=== PATIENT | female | born 1995 | race Caucasian/White ===

== ENCOUNTER 2016-08-14 11:34 | Emergency (ER) | payer MEDICAID ==
[2016-08-14 11:53] VITALS: BP 135/92
[2016-08-14] MEDS ORDERED: Lactated Ringers 1,000 ML IV SCH (12:00)
[2016-08-14 12:31] LABS: CHLORIDE,CL 105 mEq/L (98-106); SODIUM,NA 141 mEq/L (136-145)
--- NOTE | 2016-08-14 13:27 | EDM.PDOC ---
ED HPI NEURO - General Chief Complaint: Neurological Problem Stated Complaint: lethargic/seizure Time Seen by Provider: 08/14/16 11:50 Source of Information: Reports: Patient, Family History Limitations: Reports: Other (lethargic) - History of Present Illness INITIAL COMMENTS - FREE TEXT/NARRATIVE: Patient presents to ER with coworkers from [employer] after having a "near syncopal episode versus a seizure". Patient was actually coming out of the bathroom and looked very pale and staff was worried she was going to faint. Caught her before hitting the ground. She had been feeling this am like she was going to have a seizure so she took an Ativan this am. Staff did note any seizure activity. She does have a history of seizure disorder and usually is able to tell when one is coming so she takes an Ativan to halt it. She is currently on Lamictal. Last had a seizure in February and had her levels taken at that time. Mother does not recall any changes of her dose after that. She was currently treated for a UTI and has a cold currently and mother relates that she has had seizures in the past when she has been ill so she wonders if the urine hasn't cleared. Patient right now states she feels tired. Timing/Duration: Reports: Minutes: Location (Neuro Complaint): Reports: generalized Quality (Neuro Complaint): Reports: weakness Severity: mild Improves with: Reports: Rest Associated Symptoms: Reports: seizure (questionable), weakness. Denies: confusion, headaches, shortness of breath, fever/chills, diaphoresis, loss of appetite, nausea/vomiting Treatments CONSTRUCTION SUPERINTENDENT: Reports: Other medication(s) Other Treatments CONSTRUCTION SUPERINTENDENT: Took Ativan this am and is currently taking her Lamictal as directed. 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 Denies: fever, chills, malaise, decreased appetite HEENT: Reports: No symptoms Respiratory: Denies: Shortness of Breath, Wheezing, Cough Cardiovascular: Reports: Lightheadedness, Syncope. Denies: Chest pain, Edema Endocrine: Reports: fatigue GI/Abdominal: Denies: Abdominal pain, Nausea, Vomiting : Reports: no symptoms Musculoskeletal: Reports: no symptoms Skin: Reports: no symptoms Neurological: Reports: Seizure, Syncope, Weakness Psychiatric: Reports: No symptoms ED EXAM, NEURO - Physical Exam Exam: See Below Exam Limited By: No limitations General Appearance: WD/WN, no apparent distress, lethargic Eye Exam: bilateral eye: EOMI Ears: normal external exam, normal TMs Nose: normal inspection, normal mucosa, no blood Throat/Mouth: Normal inspection, Normal oropharynx Head Exam: normocephalic Neck: normal inspection, supple, non-tender Respiratory/Chest: no respiratory distress, lungs clear, normal breath sounds Cardiovascular: regular rate, rhythm GI/Abdominal: normal bowel sounds, soft, non tender Neurological: other (Patient did require 2 to transfer on to cot. At present, appears more lethargic than postictal. She does answer all questions appropriately. No incontinence. Follows command. ) Course - Vital Signs Last Recorded V/S: Last Vital Signs Temp 97.4 F 08/14/16 11:36 Pulse 104 H 08/14/16 11:36 Resp 18 08/14/16 11:36 BP 135/92 H 08/14/16 11:36 Pulse Ox 96 08/14/16 11:36 - Orders/Labs/Meds Orders: Active Orders 24 hr Category Date Time Status Lactated Ringers [Ringers, Lactated] 1,000 ml Med 08/14/16 12:00 Active IV ASDIRECTED Medication Orders Lactated Ringer's (Ringers, Lactated) 1,000 mls @ 500 mls/hr IV ASDIRECTED SURAJ Last Admin: 08/14/16 12:06 Dose: 500 mls/hr Labs: Laboratory Tests 08/14/16 08/14/16 08/14/16 Range/Units 12:02 12:02 14:15 WBC 3.4 L (5.0-10.0) 10^3/uL RBC 4.49 (4.00-5.50) 10^6/uL Hgb 13.5 (12.0-16.0) g/dL Hct 40.2 (37.0-47.0) % MCV 89.5 (82.0-94.0) fL MCH 30.1 (27.0-32.0) pg MCHC 33.6 (33.0-38.0) g/dL RDW Coeff of Ayanna 12.0 (11.0-15.0) % Plt Count 183 (150-400) 10^3/uL Neut % (Auto) 54.3 (35-85) % Lymph % (Auto) 37.8 (10-55) % Wells % (Auto) 6.7 (0-16) % Eos % (Auto) 0.6 (0-5) % Baso % (Auto) 0.6 (0-3) % Neut # 1.87 (1.80-7.00) 10^3/uL Lymph # 1.30 (1.00-4.80) 10^3/uL Wells # 0.23 (0.00-0.80) 10^3/uL Eos # 0.02 (0.00-0.45) 10^3/uL Baso # 0.02 10^3/uL Sodium 141 (136-145) mEq/L Potassium 4.0 (3.5-5.0) mEq/L Chloride 105 (98-106) mEq/L Carbon Dioxide 26 (21-32) mmol/L BUN 13 D (7-18) mg/dL Creatinine 0.9 (0.6-1.0) mg/dL Est Cr Clr Drug Dosing TNP Estimated GFR (MDRD) > 60 (>=60) mL/min Glucose 94 (75-99) mg/dL Calcium 9.1 (8.4-10.1) mg/dL Total Bilirubin 0.4 (0.0-1.0) mg/dL AST 10 L (15-37) U/L ALT 18 (12-78) U/L Alkaline Phosphatase 80 (46-116) U/L Creatine Kinase 66 (21-215) U/L Total Protein 8.0 (6.4-8.2) g/dL Albumin 4.5 (3.4-5.0) g/dL TSH, Ultra Sensitive 2.30 (0.36-5.60) uIU/mL Urine Color Light yellow (YELLOW) Urine Appearance Clear (CLEAR) Urine pH 6.0 (4.5-8.0) Ur Specific [place] 1.013 (1.003-1.020) Urine Protein Negative (NEGATIVE) mg/dL Urine Glucose (UA) Negative (NEGATIVE) mg/dL Urine Ketones Negative (NEGATIVE) mg/dL Urine Occult Blood Trace-intact H (NEGATIVE) Urine Nitrite Negative (NEGATIVE) Urine Bilirubin Negative (NEGATIVE) Urine Urobilinogen 0.2 (0.2-1.0) EU/dL Ur Leukocyte Esterase Negative (NEGATIVE) Urine RBC 0-5 (0-5) /HPF Urine WBC Not seen (0-5) /HPF Ur Squamous Epith Cells Few H (NOT SEEN) /HPF Urine Bacteria Occasional H (NOT SEEN) /HPF Meds: Medications Generic Name Dose Route Start Last Admin Trade Name Freq PRN Reason Stop Dose Admin Lactated Ringer's 1,000 mls @ 500 mls/hr 08/14/16 12:00 08/14/16 12:06 Ringers, Lactated IV 500 mls/hr ASDIRECTED SURAJ Administration Discontinued Medications Generic Name Dose Route Start Last Admin Trade Name Freq PRN Reason Stop Dose Admin Ceftriaxone Sodium 1 gm 08/14/16 14:43 08/14/16 14:54 Rocephin IVPUSH 08/14/16 14:44 1 gm ONETIME ONE Administration - Re-Assessments/Exams Free Text/Narrative Re-Assessment/Exam: 08/14/16 1230- Labs all normal. Waiting on urine. Will infuse IV fluids over 2 hours and observe. 08/14/16 16:09 Has been sleeping much of afternoon. Did complete whole dinner tray. Will discharge home. Await Lamictal level. Start antibiotics for UTI. Departure - Departure Time of Disposition: 16:10 Disposition: Home, Self-Care 01 Condition: fair Clinical Impression: Syncope, Seizure disorder Forms: ED Department Discharge Additional Instructions: 1. Rest 2. Push fluids 3. Bactrim DS one twice a day for 7 days 4. Usual seizure meds as directed 5. Notify your neurologist of potential seizure 6. Follow up if any ongoing concerns. - My Orders Last 24 Hours: My Active Orders 08/14/16 12:00 Lactated Ringers [Ringers, Lactated] 1,000 ml IV ASDIRECTED - Assessment/Plan Last 24 Hours: My Active Orders 08/14/16 12:00 Lactated Ringers [Ringers, Lactated] 1,000 ml IV ASDIRECTED
[2016-08-14] MEDS ORDERED: cefTRIAXone 1 GM Vial IVPUSH ONE (14:43)
== END 2016-08-14 16:30 | disposition home or self-care (01) ==
LOC: CC.ED 11:34
DX: G40.909 Epilepsy, unspecified, not intractable, without status epilepticus (principal); N39.0 Urinary tract infection, site not specified; F41.9 Anxiety disorder, unspecified; Z88.0 Allergy status to penicillin; Z79.899 Other long term (current) drug therapy; Z90.49 Acquired absence of other specified parts of digestive tract
CPT/HCPCS: 36415; 80053; 81001; 82550; 84443; 85025; 96361; 96374; 99283; J0696; J7120

== ENCOUNTER 2016-09-23 21:08 | Emergency (ER) | payer MEDICAID ==
[2016-09-23] MEDS ORDERED: Sodium Chloride 0.9% 1,000 ML IV ONE (21:20)
[2016-09-23] MEDS ORDERED: LORazepam 2 MG/ML Syringe IVPUSH PRN (21:21)
--- NOTE | 2016-09-23 21:40 | EDM.PDOC ---
ED HPI SEIZURE COMPLAINT - General Chief Complaint: Neurological Problem Stated Complaint: seizure Time Seen by Provider: 09/23/16 21:13 Source of Information: Reports: Patient, Family History Limitations: Reports: Altered mental status - History of Present Illness INITIAL COMMENTS - FREE TEXT/NARRATIVE: Found down at home by jannet longoria lying beside a desk. patient has a long history of seizures with the most recent being about 1 month ago. patient takes lamictal for her seizures. Symptom Onset Date: 09/23/16 Timing/Duration: Reports: minutes: Event Occurred (Where): home Event (Witnessed/Unwitnessed): unwitnessed Quality: Reports: unconscious Severity: moderate Event Symptoms: Reports: confusion, weakness Post Event Symptoms: Reports: confused, altered speech, postictal duration: - Related Data Allergies/ADRs: Allergies Allergy/AdvReac Type Severity Reaction Status Date / Time Penicillins Allergy Cannot Verified 09/23/16 21:12 Remember Home Meds: Home Meds LORazepam 1 mg PO DAILY PRN 10/17/15 [History] lamoTRIgine [Lamictal] 250 mg PO 199910/17/15 [History] Meloxicam [Mobic] 7.5 mg PO ASDIRECTED PRN 03/06/16 [History] lamoTRIgine [Lamictal] 225 mg PO DAILY 03/06/16 [History] Past Medical History HEENT History: Reports: Impaired vision 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 Neurological History: Reports: Seizure Psychiatric History: Reports: Anxiety - Past Surgical History GI Surgical History: Reports: Cholecystectomy Social & Family History - Tobacco Use Smoking Status *Q: Never Smoker - Caffeine Use Caffeine Use: Reports: Soda - Recreational Drug Use Recreational Drug Use: No ED ROS GENERAL - Review of Systems Review Of Systems: See Below Constitutional: Reports: no symptoms HEENT: Reports: No symptoms Respiratory: Reports: No Symptoms Cardiovascular: Reports: No symptoms Endocrine: Reports: no symptoms GI/Abdominal: Reports: No symptoms Musculoskeletal: Reports: no symptoms Skin: Reports: no symptoms Neurological: Reports: Confusion, Seizure, Weakness, Change in Speech Psychiatric: Reports: Anxiety Hematologic/Lymphatic: Reports: no symptoms Immunologic: Reports: no symptoms - Physical Exam Exam: See Below Exam Limited By: Altered mental status General Appearance: anxious, thin Ears: normal external exam Nose: normal inspection Throat/Mouth: Normal inspection Head Exam: atraumatic Respiratory/Chest: no respiratory distress, lungs clear Cardiovascular: normal peripheral pulses Neuro Exam (Abbreviated): confused, disoriented Back Exam: normal inspection Extremities: normal inspection, normal range of motion Psychiatric: anxious Skin Exam: Warm, Dry Course - Vital Signs Last Recorded V/S: Last Vital Signs Temp 98.9 F 09/23/16 21:10 Pulse 110 H 09/23/16 21:24 Resp 20 09/23/16 21:24 BP 137/87 09/23/16 21:24 Pulse Ox 96 09/23/16 21:24 - Orders/Labs/Meds Orders: Active Orders 24 hr Category Date Time Status LORazepam [Ativan] Med 09/23/16 21:21 Ordered 1 mg IVPUSH ASDIRECTED PRN Sodium Chloride 0.9% [Normal Saline] 1,000 ml Med 09/23/16 21:20 Ordered IV .BOLUS Medication Orders Sodium Chloride (Normal Saline) 1,000 mls @ 100 mls/hr IV .BOLUS ONE Stop: 09/24/16 07:19 Lorazepam (Ativan) 1 mg IVPUSH ASDIRECTED PRN PRN Reason: seizure activity Meds: Medications Generic Name Dose Route Start Last Admin Trade Name Freq PRN Reason Stop Dose Admin Sodium Chloride 1,000 mls @ 100 mls/hr 09/23/16 21:20 Normal Saline IV 09/24/16 07:19 .BOLUS ONE Lorazepam 1 mg 09/23/16 21:21 Ativan IVPUSH ASDIRECTED PRN seizure activity Departure - Departure Time of Disposition: 22:03 Disposition: Home, Self-Care 01 Condition: good Clinical Impression: Seizure, Seizure disorder Instructions: Epilepsy, [id number] Forms: ED Department Discharge Additional Instructions: Follow up with your neurologist tomorrow for any further. - My Orders Last 24 Hours: My Active Orders 09/23/16 21:20 Sodium Chloride 0.9% [Normal Saline] 1,000 ml IV .BOLUS 09/23/16 21:21 LORazepam [Ativan] 1 mg IVPUSH ASDIRECTED PRN - Assessment/Plan Last 24 Hours: My Active Orders 09/23/16 21:20 Sodium Chloride 0.9% [Normal Saline] 1,000 ml IV .BOLUS 09/23/16 21:21 LORazepam [Ativan] 1 mg IVPUSH ASDIRECTED PRN
[2016-09-23] MEDS ORDERED: Ondansetron 4 MG/2 ML SDV IVPUSH ONE (21:56)
[2016-09-23 22:03] VITALS: BP 114/79
== END 2016-09-23 22:22 | disposition home or self-care (01) ==
LOC: CC.ED 21:08 → SUPCPDRO 21:08 → CC.ED 22:22
DX: G40.909 Epilepsy, unspecified, not intractable, without status epilepticus (principal); Z90.49 Acquired absence of other specified parts of digestive tract; Z79.899 Other long term (current) drug therapy; Z88.0 Allergy status to penicillin
CPT/HCPCS: 96361; 96374; 96375; 99283; J2060; J2405; J7030

== ENCOUNTER 2016-12-18 12:32 | Emergency (ER) | payer MEDICAID, OTHER ==
[2016-12-18 12:38] VITALS: BP 125/89
--- NOTE | 2016-12-18 13:05 | EDM.PDOC ---
ED HPI GENERAL MEDICAL PROBLEM - General Chief Complaint: Neurological Problem Stated Complaint: POSSIBLE SEIZURE Time Seen by Provider: 12/18/16 12:47 Source of Information: Reports: Patient, Significant Other History Limitations: Reports: No Limitations - History of Present Illness INITIAL COMMENTS - FREE TEXT/NARRATIVE: Patient presents to ER after an unwitnessed syncopal episode. Boyfriend states that he came home at lunch and she was lying on the floor. Was able to assist her to the chair and she "passed out for a few seconds again". Patient was then taken to the couch and he states she "seemed daze" but not like when she has her seizures. Patient states she was not feeling well at work this am, felt dizzy at times. Did sit down to rest and felt better for a short time. Did finish out the am at work and thought she was better. Went home and doesn' t really recall what happened after that. Does admit that she had a muffin today but hasn't had much to drink other than from the water faucet. Does have a seizure history but does not feel like this is it. She did take Ativan "just in case". Has been taking Lamictal as directed. Onset: Sudden Duration: Hour(s): Location: Reports: Head Severity: Mild Improves with: Reports: Rest Associated Symptoms: Reports: Confusion, Weakness. 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(s) Other Treatments CNC SET UP OPERATOR: Ativan prior to admission Left Middle Thoracic Pain Score (Numeric/FACES): 4 - Related Data Allergies Allergy/AdvReac Type Severity Reaction Status Date / Time Penicillins Allergy Cannot Verified 09/23/16 21:12 Remember Home Meds: Home Meds LORazepam 1 mg PO DAILY PRN 10/17/15 [History] lamoTRIgine [Lamictal] 250 mg PO 199910/17/15 [History] Meloxicam [Mobic] 7.5 mg PO ASDIRECTED PRN 03/06/16 [History] lamoTRIgine [Lamictal] 225 mg PO DAILY 03/06/16 [History] Cholecalciferol (Vitamin D3) [Vitamin D] 5,000 unit PO DAILY 09/23/16 [History] Magnesium 500 mg PO DAILY 09/23/16 [History] Sulfamethoxazole/Trimethoprim [Bactrim Ds Tablet] 1 each PO BID #14 tablet 12/18 [Rx] Past Medical History HEENT History: Reports: Impaired 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 Denies: Fever, Chills HEENT: Denies: Ear Pain, Rhinitis, Throat Pain Respiratory: Denies: Shortness of Breath, Wheezing, Cough Cardiovascular: Denies: Chest Pain, Edema, Lightheadedness Endocrine: Reports: Fatigue GI/Abdominal: Denies: Abdominal Pain, Constipation, Diarrhea, Nausea, Vomiting : Reports: No Symptoms Musculoskeletal: Reports: No Symptoms Skin: Reports: No Symptoms ED EXAM, NEURO - Physical Exam Exam: See Below Exam Limited By: No Limitations General Appearance: Alert, WD/WN, No Apparent Distress Ears: Normal External Exam, Normal TMs Nose: Normal Inspection, Normal Mucosa, No Blood Throat/Mouth: Normal Inspection, Normal Oropharynx Head Exam: Normocephalic Neck: Normal Inspection, Supple, Non-Tender Respiratory/Chest: No Respiratory Distress, Lungs Clear, Normal Breath Sounds (. ) Cardiovascular: Regular Rate, Rhythm GI/Abdominal: Normal Bowel Sounds, Soft, Non-Tender Neurological: Alert, Normal Mood/Affect Extremities: Normal Inspection, Normal Capillary Refill Skin Exam: Warm, Dry Course - Vital Signs Last Recorded V/S: Last Vital Signs Temp 97.1 F 12/18/16 12:35 Pulse 80 12/18/16 12:35 Resp 20 12/18/16 12:35 BP 125/89 12/18/16 12:35 Pulse Ox 99 12/18/16 12:35 - Orders/Labs/Meds Orders: Active Orders 24 hr Category Date Time Status Head wo Cont [CT] Stat Exams 12/18/16 13:04 Taken LAMOTRIGINE [REF] Stat Lab 12/18/16 13:30 Received UA W/MICROSCOPIC [URIN] Stat Lab 12/18/16 13:03 Uncollected Lactated Ringers [Ringers, Lactated] 1,000 ml Med 12/18/16 14:15 Active IV ASDIRECTED Medication Orders Lactated Ringer's (Ringers, Lactated) 1,000 mls @ 500 mls/hr IV ASDIRECTED SURAJ Last Admin: 12/18/16 14:14 Dose: 500 mls/hr Labs: Laboratory Tests 12/18/16 12/18/16 Range/Units 13:03 13:04 WBC 4.1 L (5.0-10.0) 10^3/uL RBC 4.35 (4.00-5.50) 10^6/uL Hgb 13.5 (12.0-16.0) g/dL Hct 40.3 (37.0-47.0) % MCV 92.6 (82.0-94.0) fL MCH 31.0 (27.0-32.0) pg MCHC 33.5 (33.0-38.0) g/dL RDW Coeff of Ayanna 11.7 (11.0-15.0) % Plt Count 187 (150-400) 10^3/uL Neut % (Auto) 48.1 (35-85) % Lymph % (Auto) 43.6 (10-55) % [place]edar % (Auto) 7.1 (0-16) % Eos % (Auto) 0.7 (0-5) % Baso % (Auto) 0.5 (0-3) % Neut # (Auto) 1.96 (1.80-7.00) 10^3/uL Lymph # (Auto) 1.78 (1.00-4.80) 10^3/uL [place] # (Auto) 0.29 (0.00-0.80) 10^3/uL Eos # (Auto) 0.03 (0.00-0.45) 10^3/uL Baso # (Auto) 0.02 10^3/uL Sodium 141 (136-145) mEq/L Potassium 4.3 (3.5-5.0) mEq/L Chloride 103 (98-106) mEq/L Carbon Dioxide 27 (21-32) mmol/L BUN 12 (7-18) mg/dL Creatinine 0.9 (0.6-1.0) mg/dL Est Cr Clr Drug Dosing 94.78 mL/min Estimated GFR (MDRD) > 60 (>=60) mL/min Glucose 93 (75-99) mg/dL Calcium 9.3 (8.4-10.1) mg/dL Total Bilirubin 0.5 (0.0-1.0) mg/dL AST 14 L (15-37) U/L ALT 21 (12-78) U/L Alkaline Phosphatase 78 (46-116) U/L Creatine Kinase 66 (21-215) U/L C-Reactive Protein < 0.2 L (0.2-0.8) mg/dL Total Protein 8.0 (6.4-8.2) g/dL Albumin 4.5 (3.4-5.0) g/dL TSH, Ultra Sensitive 2.76 (0.36-5.60) uIU/mL Meds: Medications Generic Name Dose Route Start Last Admin Trade Name Freq PRN Reason Stop Dose Admin Lactated Ringer's 1,000 mls @ 500 mls/hr 12/18/16 14:15 12/18/16 14:14 Ringers, Lactated IV 500 mls/hr ASDIRECTED [facility] Administration - Re-Assessments/Exams Free Text/Narrative Re-Assessment/Exam: 12/18/16 16:08 Doing well. Feels better. Did eat dinner and is now voiding. Slept some. We did discussing notifying her neurologist if needed. Will await Lamictal level and see how she does over the next few days. Urine does show leucocytes and bacteria. Will treat accordingly. Departure - Departure Time of Disposition: 16:09 Disposition: Home, Self-Care 01 Condition: Good Clinical Impression: UTI (urinary tract infection) Qualifiers: Urinary tract infection type: acute cystitis Hematuria presence: without hematuria Qualified Code(s): N30.00 - Acute cystitis without hematuria Syncope Qualifiers: Encounter type: initial encounter - Discharge Information Forms: ED Department Discharge Additional Instructions: 1. Push fluids 2. Bactrim DS one twice a day for UTI for 7 days 3. Usual meds as directed 4. Follow up or notify us if continue to have ongoing dizziness or lightheadedness as neurology can then be notified. - My Orders Last 24 Hours: My Active Orders 12/18/16 13:03 UA W/MICROSCOPIC [URIN] Stat 12/18/16 13:04 Head wo Cont [CT] Stat 12/18/16 13:30 LAMOTRIGINE [REF] Stat 12/18/16 14:15 Lactated Ringers [Ringers, Lactated] 1,000 ml IV ASDIRECTED - Assessment/Plan Last 24 Hours: My Active Orders 12/18/16 13:03 UA W/MICROSCOPIC [URIN] Stat 12/18/16 13:04 Head wo Cont [CT] Stat 12/18/16 13:30 LAMOTRIGINE [REF] Stat 12/18/16 14:15 Lactated Ringers [Ringers, Lactated] 1,000 ml IV ASDIRECTED
[2016-12-18 13:41] LABS: CHLORIDE,CL 103 mEq/L (98-106); SODIUM,NA 141 mEq/L (136-145)
[2016-12-18] MEDS ORDERED: Lactated Ringers 1,000 ML IV SCH (14:15)
== END 2016-12-18 17:07 | disposition home or self-care (01) ==
LOC: CC.ED 12:32
DX: R55 Syncope and collapse (principal); N30.00 Acute cystitis without hematuria; R56.9 Unspecified convulsions; F41.9 Anxiety disorder, unspecified; Z90.49 Acquired absence of other specified parts of digestive tract; Z88.0 Allergy status to penicillin; Z79.1 Long term (current) use of non-steroidal anti-inflammatories (NSAID); Z79.899 Other long term (current) drug therapy; Z79.2 Long term (current) use of antibiotics
CPT/HCPCS: 36415; 70450; 80053; 80175; 81001; 82550; 84443; 85025; 86140; 96360; 96361; 99284; J7120

== ENCOUNTER 2017-02-11 12:23 | Emergency (ER) | payer MEDICAID ==
[2017-02-11] MEDS ORDERED: LORazepam 2 MG/ML Syringe IVPUSH ONE (12:26)
[2017-02-11] MEDS ORDERED: Sodium Chloride 0.9% 1,000 ML IV ONE (12:28)
[2017-02-11 12:36] VITALS: BP 122/75
[2017-02-11 12:56] LABS: CHLORIDE,CL 105 mEq/L (98-106); SODIUM,NA 140 mEq/L (136-145)
--- NOTE | 2017-02-11 13:01 | EDM.PDOC ---
ED HPI GENERAL MEDICAL PROBLEM - General Chief Complaint: Neuro Symptoms/Deficits Stated Complaint: seizures Time Seen by Provider: 02/11/17 12:26 Source of Information: Reports: Patient History Limitations: Reports: No Limitations - History of Present Illness INITIAL COMMENTS - FREE TEXT/NARRATIVE: This patient is a 21 year old female that presents to the ER. Patient reports that she has a history of Seizures and takes Lamictal, she did tae her medication today per patient. The patient reports that she still does get seizures frequently even after bring on her medications. The patient reports that she is able to tell when she is going to get a seizure. She reports that about 1 hour ago she started to feel like she is going to have a seizure. She reports that she developed a headache with lightheaded sensation. She reports this is the same exact symptoms she gets when she is getting ready to have a seizure. The patient reports that she has had some mild allergy congestion, but not been sick. She denies neck pain, neck stiffness, cp, soa, abd pain, urinary/ bowel changes, rashes, fever, nausea, vomiting, diarrhea. She is alert and oriented. She is in wheelchair and able to step over to stretcher without difficulty. No unilateral weaknesses. Stroke score is 0. No evidence of current seizure, denies seizure today, she is not post-ictal. She reports she just finished abx for UTI. Onset: Today Onset Date: 02/11/17 Onset Time: 11:45 Duration: Hour(s): (1) Severity: Moderate Improves with: Reports: None Worsens with: Reports: None Associated Symptoms: Reports: Headaches. Denies: Confusion, Chest Pain, Cough, cough w sputum, Diaphoresis, Fever/Chills, Loss of Appetite, Malaise, Nausea/ Vomiting, Rash, Seizure, Shortness of Breath, Syncope, Weakness Headache Pain Score (Numeric/FACES): 8 - Related Data Allergies Allergy/AdvReac Type Severity Reaction Status Date / Time oseltamivir [From Tamiflu] Allergy Seizure Verified 02/11/17 13:15 Penicillins Allergy Cannot Verified 02/11/17 13:15 Remember Home Meds: Home Meds LORazepam 1 mg PO DAILY PRN 10/17/15 [History] lamoTRIgine [Lamictal] 250 mg PO BID 10/17/15 [History] Cholecalciferol (Vitamin D3) [Vitamin D] 5,000 unit PO DAILY 09/23/16 [History] Magnesium 500 mg PO DAILY 09/23/16 [History] Vits #93/Iron Fum/FA [ Formula Tablet] 1 tab PO DAILY 02/11/17 [History] Past Medical History HEENT History: Reports: Impaired Vision [employer] History: Reports: Musculoskeletal History: Reports: Fracture Neurological History: Reports: Seizure Psychiatric History: Reports: Anxiety - Past Surgical History GI Surgical History: Reports: Cholecystectomy Social & Family History - Family History Family Medical History: Noncontributory - Tobacco Use Smoking Status *Q: Never Smoker - Caffeine Use Caffeine Use: Reports: None - Recreational Drug Use Recreational Drug Use: No ED ROS GENERAL - Review of Systems Review Of Systems: See Below Constitutional: Reports: No Symptoms HEENT: Reports: No Symptoms Respiratory: Reports: No Symptoms Cardiovascular: Reports: No Symptoms Endocrine: Reports: No Symptoms GI/Abdominal: Reports: No Symptoms : Reports: No Symptoms Musculoskeletal: Reports: No Symptoms Skin: Reports: No Symptoms Neurological: Reports: Dizziness, Headache. Denies: Confusion, Numbness, Paresthesia, Pre-Existing Deficit, Seizure, Syncope, Tingling, Tremors, Trouble Speaking, Difficulty Walking, Weakness, Change in Speech, Gait Disturbance Psychiatric: Reports: No Symptoms Hematologic/Lymphatic: Reports: No Symptoms Immunologic: Reports: No Symptoms - Physical Exam Exam: See Below Exam Limited By: No Limitations General Appearance: Alert, WD/WN, No Apparent Distress Eye Exam: Bilateral Eye: EOMI, PERRL Ears: Normal External Exam, Normal Canal, Hearing Grossly Normal, Normal TMs Nose: Normal Inspection, Normal Mucosa, No Blood Throat/Mouth: Normal Inspection, Normal Lips, Normal Teeth, Normal Gums, Normal Oropharynx, Normal Voice, No Airway Compromise Head Exam: Atraumatic, Normocephalic Neck: Normal Inspection, Supple, Non-Tender, Full Range of Motion Respiratory/Chest: No Respiratory Distress, Lungs Clear, Normal Breath Sounds, No Accessory Muscle Use Cardiovascular: Normal Peripheral Pulses, No Edema, No Gallop, No JVD, No Murmur , No Rub, Tachycardia (104 on exam) GI/Abdominal: Normal Bowel Sounds, Soft, Non-Tender, No Organomegaly, No Distention, No Abnormal Bruit, No Mass, Pelvis Stable Neuro Exam (Abbreviated): Alert, Oriented, CN II-XII Intact, Normal Cognition, Normal Gait, No Motor/Sensory Deficits Back Exam: Normal Inspection, Full Range of Motion. No: CVA Tenderness (L), CVA Tenderness (R) Extremities: Normal Inspection, Normal Range of Motion, Non-Tender, No Pedal Edema, Normal Capillary Refill Psychiatric: Normal Mood, Anxious Skin Exam: Warm, Dry, Intact, Normal Color, No Rash Course - Vital Signs Last Recorded V/S: Last Vital Signs Temp 97.5 F 02/11/17 12:31 Pulse 104 H 02/11/17 12:31 Resp 16 02/11/17 12:31 BP 122/75 02/11/17 12:31 Pulse Ox - Orders/Labs/Meds Labs: Laboratory Tests 02/11/17 02/11/17 02/11/17 Range/Units 12:26 12:26 13:47 WBC 3.1 L (5.0-10.0) 10^3/uL RBC 4.12 (4.00-5.50) 10^6/uL Hgb 12.6 (12.0-16.0) g/dL Hct 37.9 (37.0-47.0) % MCV 92.0 (82.0-94.0) fL MCH 30.6 (27.0-32.0) pg MCHC 33.2 (33.0-38.0) g/dL RDW Coeff of Ayanna 11.3 (11.0-15.0) % Plt Count 195 (150-400) 10^3/uL Neut % (Auto) 34.8 L (35-85) % Lymph % (Auto) 53.0 (10-55) % [place] % (Auto) 9.3 (0-16) % Eos % (Auto) 1.9 (0-5) % Baso % (Auto) 1.0 (0-3) % Neut # (Auto) 1.09 L (1.80-7.00) 10^3/uL Lymph # (Auto) 1.66 (1.00-4.80) 10^3/uL [place] # (Auto) 0.29 (0.00-0.80) 10^3/uL Eos # (Auto) 0.06 (0.00-0.45) 10^3/uL Baso # (Auto) 0.03 10^3/uL Sodium 140 (136-145) mEq/L Potassium 4.0 (3.5-5.0) mEq/L Chloride 105 (98-106) mEq/L Carbon Dioxide 23 (21-32) mmol/L BUN 9 (7-18) mg/dL Creatinine 0.9 (0.6-1.0) mg/dL Est Cr Clr Drug Dosing 95.35 mL/min Estimated GFR (MDRD) > 60 (>=60) mL/min Glucose 112 H (75-99) mg/dL Calcium 8.7 (8.4-10.1) mg/dL Total Bilirubin 0.4 (0.0-1.0) mg/dL AST 14 L (15-37) U/L ALT 19 (12-78) U/L Alkaline Phosphatase 82 (46-116) U/L Total Protein 7.4 (6.4-8.2) g/dL Albumin 4.3 (3.4-5.0) g/dL Urine Color (YELLOW) Urine Appearance (CLEAR) Urine pH (4.5-8.0) Ur Specific [place] (1.003-1.020) Urine Protein (NEGATIVE) mg/dL Urine Glucose (UA) (NEGATIVE) mg/dL Urine Ketones (NEGATIVE) mg/dL Urine Occult Blood (NEGATIVE) Urine Nitrite (NEGATIVE) Urine Bilirubin (NEGATIVE) Urine Urobilinogen (0.2-1.0) EU/dL Ur Leukocyte Esterase (NEGATIVE) Urine RBC (0-5) /HPF Urine WBC (0-5) /HPF Ur Squamous Epith Cells (NOT SEEN) /HPF Urine Bacteria (NOT SEEN) /HPF Urine Mucus (NOT SEEN) /HPF Urine HCG, Qual Urine Opiates Screen Negative (NEGATIVE) Ur Oxycodone Screen Negative (NEGATIVE) Urine Methadone Screen Negative (NEGATIVE) Ur Barbiturates Screen Negative (NEGATIVE) U Tricyclic Antidepress Negative (NEGATIVE) Ur Phencyclidine Scrn Negative (NEGATIVE) Ur Amphetamine Screen Negative (NEGATIVE) U Methamphetamines Scrn Negative (NEGATIVE) Urine MDMA Screen Negative (NEGATIVE) U Benzodiazepines Scrn Positive H (NEGATIVE) Urine Cocaine Screen Negative (NEGATIVE) U Marijuana (THC) Screen Negative (NEGATIVE) 02/11/17 02/11/17 Range/Units 13:52 13:52 WBC (5.0-10.0) 10^3/uL RBC (4.00-5.50) 10^6/uL Hgb (12.0-16.0) g/dL Hct (37.0-47.0) % MCV (82.0-94.0) fL MCH (27.0-32.0) pg MCHC (33.0-38.0) g/dL RDW Coeff of Ayanna (11.0-15.0) % Plt Count (150-400) 10^3/uL Neut % (Auto) (35-85) % Lymph % (Auto) (10-55) % [place] % (Auto) (0-16) % Eos % (Auto) (0-5) % Baso % (Auto) (0-3) % Neut # (Auto) (1.80-7.00) 10^3/uL Lymph # (Auto) (1.00-4.80) 10^3/uL [place] # (Auto) (0.00-0.80) 10^3/uL Eos # (Auto) (0.00-0.45) 10^3/uL Baso # (Auto) 10^3/uL Sodium (136-145) mEq/L Potassium (3.5-5.0) mEq/L Chloride (98-106) mEq/L Carbon Dioxide (21-32) mmol/L BUN (7-18) mg/dL Creatinine (0.6-1.0) mg/dL Est Cr Clr Drug Dosing mL/min Estimated GFR (MDRD) (>=60) mL/min Glucose (75-99) mg/dL Calcium (8.4-10.1) mg/dL Total Bilirubin (0.0-1.0) mg/dL AST (15-37) U/L ALT (12-78) U/L Alkaline Phosphatase (46-116) U/L Total Protein (6.4-8.2) g/dL Albumin (3.4-5.0) g/dL Urine Color Yellow (YELLOW) Urine Appearance Clear (CLEAR) Urine pH 6.0 (4.5-8.0) Ur Specific [place] >= 1.030 H (1.003-1.020) Urine Protein Trace H (NEGATIVE) mg/dL Urine Glucose (UA) Negative (NEGATIVE) mg/dL Urine Ketones Negative (NEGATIVE) mg/dL Urine Occult Blood Trace-lysed H (NEGATIVE) Urine Nitrite Negative (NEGATIVE) Urine Bilirubin Negative (NEGATIVE) Urine Urobilinogen 0.2 (0.2-1.0) EU/dL Ur Leukocyte Esterase Negative (NEGATIVE) Urine RBC Not seen (0-5) /HPF Urine WBC Not seen (0-5) /HPF Ur Squamous Epith Cells Many H (NOT SEEN) /HPF Urine Bacteria Few H (NOT SEEN) /HPF Urine Mucus Few H (NOT SEEN) /HPF Urine HCG, Qual Negative Urine Opiates Screen (NEGATIVE) Ur Oxycodone Screen (NEGATIVE) Urine Methadone Screen (NEGATIVE) Ur Barbiturates Screen (NEGATIVE) U Tricyclic Antidepress (NEGATIVE) Ur Phencyclidine Scrn (NEGATIVE) Ur Amphetamine Screen (NEGATIVE) U Methamphetamines Scrn (NEGATIVE) Urine MDMA Screen (NEGATIVE) U Benzodiazepines Scrn (NEGATIVE) Urine Cocaine Screen (NEGATIVE) U Marijuana (THC) Screen (NEGATIVE) Meds: Medications Discontinued Medications Generic Name Dose Route Start Last Admin Trade Name Freq PRN Reason Stop Dose Admin Sodium Chloride 1,000 mls @ 1,000 mls/hr 02/11/17 12:28 02/11/17 12:41 Normal Saline IV 02/11/17 13:27 1,000 mls/hr .BOLUS ONE Administration Lorazepam 1 mg 02/11/17 12:26 02/11/17 12:37 Ativan IVPUSH 02/11/17 12:27 1 mg ONETIME ONE Administration Departure - Departure Time of Disposition: 14:17 Disposition: Home, Self-Care 01 Condition: Good Clinical Impression: Seizure disorder, Dehydration - Discharge Information Instructions: Epilepsy, [id number], Rehydration, Adult Referrals: Gil Orozco MD [Primary Care Provider] - Forms: ED Department Discharge Additional Instructions: Followup with your primary care provider Return to the ER for worsening of condition or any emergent concerns Increase fluids Take seizure medications as prescribed - Assessment/Plan Plan: PLEASE SEE RN NOTE FOR PFSH.
== END 2017-02-11 14:40 | disposition home or self-care (01) ==
LOC: CC.ED 12:23
DX: G40.909 Epilepsy, unspecified, not intractable, without status epilepticus (principal); E86.0 Dehydration; F41.9 Anxiety disorder, unspecified; Z90.49 Acquired absence of other specified parts of digestive tract; Z88.0 Allergy status to penicillin; Z88.8 Allergy status to other drugs, medicaments and biological substances
CPT/HCPCS: 36415; 80053; 80305; 81001; 81025; 85025; 96361; 96374; 99284; J2060; J7030

== ENCOUNTER 2017-03-05 09:22 | Emergency (ER) | payer MEDICAID ==
[2017-03-05 09:27] VITALS: BP 135/77
--- NOTE | 2017-03-05 09:49 | EDM.PDOC ---
ED HPI GENERAL MEDICAL PROBLEM - General Chief Complaint: General Stated Complaint: feeling like im going to have a seizure Time Seen by Provider: 03/05/17 09:30 Source of Information: Reports: Patient History Limitations: Reports: No Limitations - History of Present Illness INITIAL COMMENTS - FREE TEXT/NARRATIVE: Patient presents to ER with weakness and a headache. 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 States felt weak so went and sat down in the break room. Believes she may have "passed out for a little while as everything went black". Does have a seizure disorder, unsure if she had one. She states she did take her Keppra this am, did not have any Ativan at work to take. Did have breakfast this am. Has been feeling well as of late. Now having issues with dizziness, nausea and headache. Onset: Today, Sudden Duration: Minutes: Location: Reports: Generalized Severity: Mild Worsens with: Reports: Movement Associated Symptoms: Reports: Nausea/Vomiting, Seizure, Syncope. Denies: Confusion, Chest Pain, Cough, Diaphoresis, Fever/Chills, Loss of Appetite, Shortness of Breath, Weakness Headache Pain Score (Numeric/FACES): 5 - Related Data Allergies Allergy/AdvReac Type Severity Reaction Status Date / Time oseltamivir [From Tamiflu] Allergy Seizure Verified 03/05/17 09:27 Penicillins Allergy Cannot Verified 03/05/17 09:27 Remember Home Meds: Home Meds LORazepam 1 mg PO DAILY PRN 10/17/15 [History] lamoTRIgine [Lamictal] 250 mg PO BID 10/17/15 [History] Cholecalciferol (Vitamin D3) [Vitamin D] 5,000 unit PO DAILY 09/23/16 [History] Magnesium 500 mg PO DAILY 09/23/16 [History] Vits #93/Iron Fum/FA [ Formula Tablet] 1 tab PO DAILY 02/11/17 [History] Past Medical History HEENT History: Reports: Impaired 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 Denies: Fever, Chills, Malaise, Decreased Appetite HEENT: Denies: Vision Change Respiratory: Denies: Shortness of Breath, Cough Cardiovascular: Reports: Lightheadedness. Denies: Chest Pain, Edema Endocrine: Reports: Fatigue GI/Abdominal: Reports: Nausea. Denies: Abdominal Pain, Vomiting : Reports: No Symptoms Musculoskeletal: Reports: No Symptoms Skin: Reports: No Symptoms Neurological: Reports: Dizziness, Headache, Syncope, Weakness Psychiatric: Reports: No Symptoms ED EXAM, NEURO - Physical Exam Exam: See Below Exam Limited By: No Limitations General Appearance: Alert, WD/WN, No Apparent Distress Ears: Normal External Exam, Normal TMs Nose: Normal Inspection, Normal Mucosa, No Blood Throat/Mouth: Normal Inspection, Normal Oropharynx Head Exam: Normocephalic Neck: Normal Inspection, Supple, Non-Tender Respiratory/Chest: No Respiratory Distress, Lungs Clear, Normal Breath Sounds Cardiovascular: Regular Rate, Rhythm GI/Abdominal: Normal Bowel Sounds, Soft, Non-Tender Neurological: Alert, Normal Mood/Affect, CN II-XII Intact, Oriented x 3 Extremities: Normal Inspection, Normal Capillary Refill Psychiatric: Normal Affect, Normal Mood Skin Exam: Warm, Dry Course - Vital Signs Last Recorded V/S: Last Vital Signs Temp 98.9 F 03/05/17 09:23 Pulse 94 03/05/17 09:23 Resp 16 03/05/17 09:23 BP 135/77 03/05/17 09:23 Pulse Ox 98 03/05/17 09:23 - Orders/Labs/Meds Orders: Active Orders 24 hr Category Date Time Status KIYA [REF] Stat Lab 03/05/17 10:24 Ordered Labs: Laboratory Tests 03/05/17 03/05/17 03/05/17 Range/Units 09:40 10:00 10:00 WBC 3.0 L (5.0-10.0) 10^3/uL RBC 3.93 L (4.00-5.50) 10^6/uL Hgb 12.3 (12.0-16.0) g/dL Hct 36.7 L (37.0-47.0) % MCV 93.4 (82.0-94.0) fL MCH 31.3 (27.0-32.0) pg MCHC 33.5 (33.0-38.0) g/dL RDW Coeff of Ayanna 11.2 (11.0-15.0) % Plt Count 168 (150-400) 10^3/uL Neut % (Auto) 48.8 (35-85) % Lymph % (Auto) 41.6 (10-55) % [place] % (Auto) 7.6 (0-16) % Eos % (Auto) 1.3 (0-5) % Baso % (Auto) 0.7 (0-3) % Neut # (Auto) 1.48 L (1.80-7.00) 10^3/uL Lymph # (Auto) 1.26 (1.00-4.80) 10^3/uL [place] # (Auto) 0.23 (0.00-0.80) 10^3/uL Eos # (Auto) 0.04 (0.00-0.45) 10^3/uL Baso # (Auto) 0.02 10^3/uL Sodium 139 (136-145) mEq/L Potassium 4.0 (3.5-5.0) mEq/L Chloride 105 (98-106) mEq/L Carbon Dioxide 29 (21-32) mmol/L BUN 9 (7-18) mg/dL Creatinine 0.9 (0.6-1.0) mg/dL Est Cr Clr Drug Dosing TNP Estimated GFR (MDRD) > 60 (>=60) mL/min Glucose 95 (75-99) mg/dL Calcium 8.9 (8.4-10.1) mg/dL Total Bilirubin 0.3 (0.0-1.0) mg/dL AST 11 L (15-37) U/L ALT 17 (12-78) U/L Alkaline Phosphatase 69 (46-116) U/L Creatine Kinase 61 (21-215) U/L C-Reactive Protein < 0.2 L (0.2-0.8) mg/dL Total Protein 7.3 (6.4-8.2) g/dL Albumin 4.2 (3.4-5.0) g/dL Urine Color (YELLOW) Urine Appearance (CLEAR) Urine pH (4.5-8.0) Ur Specific [place] (1.003-1.020) Urine Protein (NEGATIVE) mg/dL Urine Glucose (UA) (NEGATIVE) mg/dL Urine Ketones (NEGATIVE) mg/dL Urine Occult Blood (NEGATIVE) Urine Nitrite (NEGATIVE) Urine Bilirubin (NEGATIVE) Urine Urobilinogen (0.2-1.0) EU/dL Ur Leukocyte Esterase (NEGATIVE) Urine RBC (0-5) /HPF Urine WBC (0-5) /HPF Ur Squamous Epith Cells (NOT SEEN) /HPF Urine Bacteria (NOT SEEN) /HPF Urine Mucus (NOT SEEN) /HPF Urine Opiates Screen Negative (NEGATIVE) Ur Oxycodone Screen Negative (NEGATIVE) Urine Methadone Screen Negative (NEGATIVE) Ur Barbiturates Screen Negative (NEGATIVE) U Tricyclic Antidepress Negative (NEGATIVE) Ur Phencyclidine Scrn Negative (NEGATIVE) Ur Amphetamine Screen Negative (NEGATIVE) U Methamphetamines Scrn Negative (NEGATIVE) Urine MDMA Screen Negative (NEGATIVE) U Benzodiazepines Scrn Negative (NEGATIVE) Urine Cocaine Screen Negative (NEGATIVE) U Marijuana (THC) Screen Negative (NEGATIVE) 03/05/17 Range/Units 10:00 WBC (5.0-10.0) 10^3/uL RBC (4.00-5.50) 10^6/uL Hgb (12.0-16.0) g/dL Hct (37.0-47.0) % MCV (82.0-94.0) fL MCH (27.0-32.0) pg MCHC (33.0-38.0) g/dL RDW Coeff of Ayanna (11.0-15.0) % Plt Count (150-400) 10^3/uL Neut % (Auto) (35-85) % Lymph % (Auto) (10-55) % [place] % (Auto) (0-16) % Eos % (Auto) (0-5) % Baso % (Auto) (0-3) % Neut # (Auto) (1.80-7.00) 10^3/uL Lymph # (Auto) (1.00-4.80) 10^3/uL [place] # (Auto) (0.00-0.80) 10^3/uL Eos # (Auto) (0.00-0.45) 10^3/uL Baso # (Auto) 10^3/uL Sodium (136-145) mEq/L Potassium (3.5-5.0) mEq/L Chloride (98-106) mEq/L Carbon Dioxide (21-32) mmol/L BUN (7-18) mg/dL Creatinine (0.6-1.0) mg/dL Est Cr Clr Drug Dosing Estimated GFR (MDRD) (>=60) mL/min Glucose (75-99) mg/dL Calcium (8.4-10.1) mg/dL Total Bilirubin (0.0-1.0) mg/dL AST (15-37) U/L ALT (12-78) U/L Alkaline Phosphatase (46-116) U/L Creatine Kinase (21-215) U/L C-Reactive Protein (0.2-0.8) mg/dL Total Protein (6.4-8.2) g/dL Albumin (3.4-5.0) g/dL Urine Color Yellow (YELLOW) Urine Appearance Clear (CLEAR) Urine pH 6.0 (4.5-8.0) Ur Specific [place] 1.010 (1.003-1.020) Urine Protein Negative (NEGATIVE) mg/dL Urine Glucose (UA) Negative (NEGATIVE) mg/dL Urine Ketones Negative (NEGATIVE) mg/dL Urine Occult Blood Negative (NEGATIVE) Urine Nitrite Negative (NEGATIVE) Urine Bilirubin Negative (NEGATIVE) Urine Urobilinogen 0.2 (0.2-1.0) EU/dL Ur Leukocyte Esterase Negative (NEGATIVE) Urine RBC Not seen (0-5) /HPF Urine WBC 0-5 (0-5) /HPF Ur Squamous Epith Cells Few H (NOT SEEN) /HPF Urine Bacteria Occasional H (NOT SEEN) /HPF Urine Mucus Moderate H (NOT SEEN) /HPF Urine Opiates Screen (NEGATIVE) Ur Oxycodone Screen (NEGATIVE) Urine Methadone Screen (NEGATIVE) Ur Barbiturates Screen (NEGATIVE) U Tricyclic Antidepress (NEGATIVE) Ur Phencyclidine Scrn (NEGATIVE) Ur Amphetamine Screen (NEGATIVE) U Methamphetamines Scrn (NEGATIVE) Urine MDMA Screen (NEGATIVE) U Benzodiazepines Scrn (NEGATIVE) Urine Cocaine Screen (NEGATIVE) U Marijuana (THC) Screen (NEGATIVE) - Re-Assessments/Exams Free Text/Narrative Re-Assessment/Exam: 03/05/17 10:25 Labs are all normal. Questioned fluid intake and offered IV fluids but patient declined Departure - Departure Time of Disposition: 10:25 Disposition: Home, Self-Care 01 Condition: Good Clinical Impression: Seizure disorder Syncope Qualifiers: Encounter type: initial encounter - Discharge Information Forms: ED Department Discharge Additional Instructions: 1. Rest through the day 2. Increase fluid intake 3. Ativan as needed 4. If dizziness or headache persist, follow up with usual provider. 5. Meds as directed 6. contact us with any questions - My Orders Last 24 Hours: My Active Orders 03/05/17 10:24 KEPPRA [REF] Stat - Assessment/Plan Last 24 Hours: My Active Orders 03/05/17 10:24 KEPPRA [REF] Stat
[2017-03-05 10:08] LABS: CHLORIDE,CL 105 mEq/L (98-106); SODIUM,NA 139 mEq/L (136-145)
== END 2017-03-05 10:33 | disposition home or self-care (01) ==
LOC: CC.ED 09:22
DX: G40.909 Epilepsy, unspecified, not intractable, without status epilepticus (principal); R55 Syncope and collapse; Z90.49 Acquired absence of other specified parts of digestive tract; Z79.899 Other long term (current) drug therapy; Z88.0 Allergy status to penicillin; Z88.7 Allergy status to serum and vaccine
CPT/HCPCS: 36415; 80053; 80175; 80305; 81001; 82550; 85025; 86140; 99284

== ENCOUNTER 2017-07-16 22:44 | Emergency (ER) | payer MEDICAID ==
[2017-07-16 22:49] VITALS: BP 129/79
--- NOTE | 2017-07-16 23:19 | EDM.PDOC ---
ED HPI GENERAL MEDICAL PROBLEM - General Chief Complaint: Neurological Problem Stated Complaint: syncopal episode Time Seen by Provider: 07/16/17 22:50 Source of Information: Reports: Patient, Family History Limitations: Reports: No Limitations - History of Present Illness INITIAL COMMENTS - FREE TEXT/NARRATIVE: Patient presents to ER with significant other with concerns of a possible syncopal episode. Boyfriend states they were having a "serious conversation" as he was out in the bar and wasn't home for supper. She got up from the couch to walk away and "collapsed to the floor". She does have a seizure disorder but he states it didn't appear to be a seizure. She was "still breathing" so he went to the neighbors for help to watch her child while he brought her here. She admits that she hasn't had anything to eat this evening. Doesn't recall the event. Remembers driving to come to the hospital. Feels weak and tired. Has been compliant with her meds. Denies any abuse at home. Onset: Sudden Duration: Minutes:, Improving Location: Reports: Generalized Associated Symptoms: Reports: Syncope, Weakness. Denies: Confusion, Cough, Loss of Appetite, Nausea/Vomiting, Shortness of Breath Headache Pain Score (Numeric/FACES): 5 - Related Data Allergies Allergy/AdvReac Type Severity Reaction Status Date / Time oseltamivir [From Tamiflu] Allergy Seizure Verified 07/16/17 23:11 Penicillins Allergy Cannot Verified 07/16/17 23:11 Remember Home Meds: Home Meds LORazepam 1 mg PO DAILY PRN 10/17/15 [History] lamoTRIgine [Lamictal] 250 mg PO BID 10/17/15 [History] Cholecalciferol (Vitamin D3) [Vitamin D] 5,000 unit PO DAILY 09/23/16 [History] Magnesium 500 mg PO DAILY 09/23/16 [History] Vits #93/Iron Fum/FA [ Formula Tablet] 1 tab PO DAILY 02/11/17 [History] Past Medical History HEENT History: Reports: Impaired Vision [employer] History: Reports: Musculoskeletal History: Reports: Fracture Neurological History: Reports: Seizure Psychiatric History: Reports: Anxiety - Past Surgical History GI Surgical History: Reports: Cholecystectomy Social & Family History - Family History Family Medical History: Noncontributory - Tobacco Use Smoking Status *Q: Never Smoker Second Hand Smoke Exposure: No - Caffeine Use Caffeine Use: Reports: None - Recreational Drug Use Recreational Drug Use: No ED ROS GENERAL - Review of Systems Review Of Systems: See Below Constitutional: Reports: Weakness, Fatigue. Denies: Fever, Chills, Decreased Appetite HEENT: Denies: Ear Pain, Rhinitis, Sinus Problem, Throat Pain Respiratory: Denies: Shortness of Breath, Cough Cardiovascular: Reports: Lightheadedness. Denies: Chest Pain, Edema Endocrine: Reports: Fatigue GI/Abdominal: Denies: Abdominal Pain, Constipation, Diarrhea, Nausea, Vomiting : Reports: No Symptoms Musculoskeletal: Reports: No Symptoms Skin: Reports: No Symptoms Neurological: Reports: Syncope, Weakness - Physical Exam Exam: See Below Exam Limited By: No Limitations General Appearance: Alert, WD/WN, No Apparent Distress Ears: Normal External Exam, Normal TMs Nose: Normal Inspection, Normal Mucosa, No Blood Throat/Mouth: Normal Inspection, Normal Oropharynx Head Exam: Normocephalic Neck: Normal Inspection, Supple, Non-Tender Respiratory/Chest: No Respiratory Distress, Lungs Clear Cardiovascular: Regular Rate, Rhythm GI/Abdominal: Normal Bowel Sounds, Soft, Non-Tender Neuro Exam (Abbreviated): Alert, Oriented Psychiatric: Normal Affect, Normal Mood Skin Exam: Warm, Dry Course - Vital Signs Last Recorded V/S: Last Vital Signs Temp 97.9 F 07/16/17 22:45 Pulse 97 07/16/17 22:45 Resp 20 07/16/17 22:45 BP 129/79 07/16/17 22:45 Pulse Ox 98 07/16/17 22:45 - Orders/Labs/Meds Labs: Laboratory Tests 07/16/17 07/16/17 07/16/17 Range/Units 22:53 23:00 23:00 WBC (5.0-10.0) 10^3/uL RBC (4.00-5.50) 10^6/uL Hgb (12.0-16.0) g/dL Hct (37.0-47.0) % MCV (82.0-94.0) fL MCH (27.0-32.0) pg MCHC (33.0-38.0) g/dL RDW Coeff of Ayanna (11.0-15.0) % Plt Count (150-400) 10^3/uL Neut % (Auto) (35-85) % Lymph % (Auto) (10-55) % [place] % (Auto) (0-16) % Eos % (Auto) (0-5) % Baso % (Auto) (0-3) % Neut # (Auto) (1.80-7.00) 10^3/uL Lymph # (Auto) (1.00-4.80) 10^3/uL Cand[place] # (Auto) (0.00-0.80) 10^3/uL Eos # (Auto) (0.00-0.45) 10^3/uL Baso # (Auto) 10^3/uL Sodium 139 (136-145) mEq/L Potassium 3.9 (3.5-5.0) mEq/L Chloride 103 (98-106) mEq/L Carbon Dioxide 27 (21-32) mmol/L BUN 12 (7-18) mg/dL Creatinine 0.9 (0.6-1.0) mg/dL Est Cr Clr Drug Dosing 94.54 mL/min Estimated GFR (MDRD) > 60 (>=60) mL/min Glucose 110 H (75-99) mg/dL Calcium 9.3 (8.4-10.1) mg/dL Total Bilirubin 0.3 (0.0-1.0) mg/dL AST 13 L (15-37) U/L ALT 15 (12-78) U/L Alkaline Phosphatase 75 (46-116) U/L Creatine Kinase 70 (21-215) U/L Total Protein 7.5 (6.4-8.2) g/dL Albumin 4.5 (3.4-5.0) g/dL HCG, Qual Negative Urine Color Yellow (YELLOW) Urine Appearance Clear (CLEAR) Urine pH 6.5 (4.5-8.0) Ur Specific [place] 1.025 H (1.003-1.020) Urine Protein Negative (NEGATIVE) mg/dL Urine Glucose (UA) Negative (NEGATIVE) mg/dL Urine Ketones Negative (NEGATIVE) mg/dL Urine Occult Blood Negative (NEGATIVE) Urine Nitrite Negative (NEGATIVE) Urine Bilirubin Negative (NEGATIVE) Urine Urobilinogen 0.2 (0.2-1.0) EU/dL Ur Leukocyte Esterase Negative (NEGATIVE) Urine RBC Not seen (0-5) /HPF Urine WBC Not seen (0-5) /HPF Ur Squamous Epith Cells Few H (NOT SEEN) /HPF Amorphous Sediment Few H (NOT SEEN) /HPF Urine Bacteria Few H (NOT SEEN) /HPF Urine Mucus Few H (NOT SEEN) /HPF 07/16/17 Range/Units 23:00 WBC 6.6 (5.0-10.0) 10^3/uL RBC 4.05 (4.00-5.50) 10^6/uL Hgb 12.3 (12.0-16.0) g/dL Hct 36.9 L (37.0-47.0) % MCV 91.1 (82.0-94.0) fL MCH 30.4 (27.0-32.0) pg MCHC 33.3 (33.0-38.0) g/dL RDW Coeff of Ayanna 11.6 (11.0-15.0) % Plt Count 199 (150-400) 10^3/uL Neut % (Auto) 66.8 (35-85) % Lymph % (Auto) 27.0 (10-55) % Cand[place] % (Auto) 5.3 (0-16) % Eos % (Auto) 0.6 (0-5) % Baso % (Auto) 0.3 (0-3) % Neut # (Auto) 4.38 (1.80-7.00) 10^3/uL Lymph # (Auto) 1.77 (1.00-4.80) 10^3/uL Candler # (Auto) 0.35 (0.00-0.80) 10^3/uL Eos # (Auto) 0.04 (0.00-0.45) 10^3/uL Baso # (Auto) 0.02 10^3/uL Sodium (136-145) mEq/L Potassium (3.5-5.0) mEq/L Chloride (98-106) mEq/L Carbon Dioxide (21-32) mmol/L BUN (7-18) mg/dL Creatinine (0.6-1.0) mg/dL Est Cr Clr Drug Dosing mL/min Estimated GFR (MDRD) (>=60) mL/min Glucose (75-99) mg/dL Calcium (8.4-10.1) mg/dL Total Bilirubin (0.0-1.0) mg/dL AST (15-37) U/L ALT (12-78) U/L Alkaline Phosphatase (46-116) U/L Creatine Kinase (21-215) U/L Total Protein (6.4-8.2) g/dL Albumin (3.4-5.0) g/dL HCG, Qual Urine Color (YELLOW) Urine Appearance (CLEAR) Urine pH (4.5-8.0) Ur Specific [place] (1.003-1.020) Urine Protein (NEGATIVE) mg/dL Urine Glucose (UA) (NEGATIVE) mg/dL Urine Ketones (NEGATIVE) mg/dL Urine Occult Blood (NEGATIVE) Urine Nitrite (NEGATIVE) Urine Bilirubin (NEGATIVE) Urine Urobilinogen (0.2-1.0) EU/dL Ur Leukocyte Esterase (NEGATIVE) Urine RBC (0-5) /HPF Urine WBC (0-5) /HPF Ur Squamous Epith Cells (NOT SEEN) /HPF Amorphous Sediment (NOT SEEN) /HPF Urine Bacteria (NOT SEEN) /HPF Urine Mucus (NOT SEEN) /HPF Departure - Departure Time of Disposition: 23:26 Disposition: Home, Self-Care 01 Condition: Good Clinical Impression: Near syncope - Discharge Information Referrals: Gil Orozco MD [Primary Care Provider] - Forms: ED Department Discharge Additional Instructions: 1. Rest 2. Push fluids 3. Usual meds as directed 4. Follow up if any ongoing concerns.
[2017-07-16 23:20] LABS: CHLORIDE,CL 103 mEq/L (98-106); SODIUM,NA 139 mEq/L (136-145)
== END 2017-07-16 23:30 | disposition home or self-care (01) ==
LOC: CC.ED 22:44
DX: R55 Syncope and collapse (principal); Z88.1 Allergy status to other antibiotic agents; Z88.0 Allergy status to penicillin; Z88.8 Allergy status to other drugs, medicaments and biological substances
CPT/HCPCS: 36415; 80053; 81001; 82550; 84703; 85025; 99284